=== PATIENT | female | born 1995 | race Caucasian/White ===

== ENCOUNTER 2019-08-08 08:43 | Emergency (ER) | payer MEDICAID ==
[2019-08-08 09:14] LABS: GLUCOSE, URINE (UA) NEGATIVE (NEGATIVE); KETONES,URINE (UA) 15 mg/dL (NEGATIVE); LEUKOCYTE ESTERASE, URINE TRACE (NEGATIVE); NITRITE,URINE NEGATIVE (NEGATIVE); OCCULT BLOOD,URINE NEGATIVE (NEGATIVE); PH,URINE 6.5 PH (5.0-7.5); PROTEIN,URINE NEGATIVE (NEGATIVE); UROBILINOGEN,URINE 2 E.U./dL (NORMAL)
[2019-08-08 09:18] LABS: CLARITY,URINE CLEAR (CLEAR); HCG UR QUAL NEGATIVE
[2019-08-08 09:21] LABS: BILIRUBIN,URINE NEGATIVE (NEGATIVE); ICTOTEST,URINE NEGATIVE
[2019-08-08 09:31] LABS: BACTERIA,URINE Few /HPF (None Seen); RBC,URINE 0-5 /HPF (0-5); SQUAMOUS EPITHELIAL CELL,UR MOD Squamous (<= Few)
[2019-08-08] MEDS ORDERED: LIDOCAINE 1%-EPI 1:100000 20 ML MDV SUBQ STA (11:11)
--- NOTE | 2019-08-08 12:02 | PROCEDURE REPORT ---
Hospitalist Procedure Note - Procedure Note Procedure Note: Nexplanon removal Pt reports placement 4 years ago. Feeling very anxious today, chest tightening, dyspnea. Although relates longstanding anxiety d/o, denies previous panic attacks. Wants the nexplanon out. I counseled her re 3 year duration of action; neg UPT today. Counseled her re multiple misconceptions about LARCs and other contraceptives and her current lack of protection from . She denies intent to harm herself or others. Appears very comfortable, in no distress. Consent obtained. Left arm cleaned with betadine. 2.5cc 1% lido w epi injected. 2mm incision made just at the end of the device and it was easily removed with a mosquito forcep in its entirety. EBL<1cc Bandage placed. Device showed to patient.
--- NOTE | 2019-08-08 13:58 | ED Physician Documentation ---
History of Present Illness - Stated complaint Stated Complaint: L ARM PX - Chief complaint Chief Complaint: MHE - History obtained from History obtained from: Patient - History of Present Illness Timing: How many weeks ago (1) - Additonal information Additional information: 24-year-old female has had an implan in place for the past 4 years has over the past week developed increase in anxiety and depression she is having some suicidal thoughts and she has been become concerned about this and feels that this is related to the implan. She feels it is related to the implan because she is beginning to get some itching to this to the site of the insertion and associated with this itching she is having thoughts of depression anxiety.She has become concerned about these ideas in her head and has come to the emergency department today really wanting to get the implan out now. Review of Systems Constitutional: denies: Fever Eyes: denies: Decreased vision Ears: denies: Ear pain Nose: denies: Rhinorrhea / runny nose, Congestion Throat: denies: Sore throat Cardiac: denies: Chest pain / pressure, Palpitations Respiratory: denies: Dyspnea, Cough GI: reports: Nausea. denies: Abdominal Pain, Vomiting : denies: Dysuria, Frequency Skin: denies: Rash Musculoskeletal: denies: Neck pain, Back pain, Extremity pain Neurologic: denies: Generalized weakness, Focal weakness, Numbness PD PAST MEDICAL HISTORY - Past Medical History Past Medical History: No - Past Surgical History Past Surgical History: No - Present Medications Home Medications: Ambulatory Orders Medication Instructions Recorded Confirmed Etonogestrel [Nexplanon] 68 mg SQ 08/08/19 - Allergies Allergies/Adverse Reactions: Allergies Allergy/AdvReac Type Severity Reaction Status Date / Time No Known Drug Allergies Allergy Verified 08/08/19 08:55 - Social History Does the pt smoke?: No Smoking Status: Never smoker Does the pt drink ETOH?: No Does the pt have substance abuse?: No - Immunizations Immunizations are current?: Yes PD ED PE NORMAL - Vitals Vital signs reviewed: Yes (normal ) - General General: Alert and oriented X 3, No acute distress, Well developed/nourished - HEENT HEENT: Atraumatic, PERRL, EOMI - Neck Neck: Supple, no meningeal sign, No bony TTP - Cardiac Cardiac: RRR, No murmur - Respiratory Respiratory: No respiratory distress, Clear bilaterally - Abdomen Abdomen: Normal bowel sounds, Soft, Non tender, Non distended, No organomegaly - Back Back: No CVA TTP, No spinal TTP - Derm Derm: Normal color, Warm and dry, No rash - Extremities Extremities: No deformity, No edema, No calf tenderness / cord, Other (At the site of the implant and there is no evidence of inflammation or specific swelling the implan is palpable and is not tender) - Neuro Neuro: Alert and oriented X 3, aircraft part assembler 2-12 intact, No motor deficit, No sensory deficit, Normal speech Eye Opening: Spontaneous Motor: Obeys Commands Verbal: Oriented GCS Score: 15 - Psych Psych: Normal mood, Normal affect Results - Vitals Vitals: Vital Signs - 24 hr 08/08/19 08/08/19 08/08/19 08:51 08:55 11:00 Temperature 37 C Heart Rate 96 95 92 Respiratory 18 16 16 Rate Blood Pressure 127/88 H 120/78 118/65 O2 Saturation 100 100 100 08/08/19 13:59 Temperature 36.8 C Heart Rate 80 Respiratory 16 Rate Blood Pressure 122/65 O2 Saturation 100 Oxygen O2 Source Room air - Labs Labs: Laboratory Tests 08/08/19 08/08/19 09:00 09:00 Urine Color DARK YELLOW Urine Clarity CLEAR Urine pH 6.5 Ur Specific [place] 1.025 1.025 Urine Protein NEGATIVE Urine Glucose (UA) NEGATIVE Urine Ketones 15 H Urine Occult Blood NEGATIVE Urine Nitrite NEGATIVE Urine Bilirubin NEGATIVE Urine Urobilinogen 2 H Ur Leukocyte Esterase TRACE H Urine RBC 0-5 Urine WBC 0-3 Ur Squamous Epith Cells MOD Squamous H Urine Bacteria Few Ur Microscopic Review INDICATED Urine Culture Comments NOT INDICATED Urine HCG, Qual NEGATIVE PD MEDICAL DECISION MAKING - ED course Complexity details: reviewed results, re-evaluated patient, considered differential, d/w patient ED course: 24-year-old female with an implant in place who is feeling this needs to be removed immediately has come to the emergency department feeling depressed and anxious. The SALES AND MARKETING ENGINEER doctor is consulted the case comes to the emerge department and remove the implant. The patient feels improved and she is given resources for counseling and follow-up doctors by the social media marketing specialist. I have encouraged the patient to follow-up with [facility] and to follow-up with counseling. She does feel that she is likely stressed from not being able to go back home to [place] during the coronavirus. She has been stuck here in [facility] now for the past 3 months Departure - Departure Disposition: 01 Home, Self Care Clinical Impression: Implanon removal Depression Qualifiers: Depression Type: unspecified Qualified Code(s): F32.9 - Major depressive disorder, single episode, unspecified Condition: Stable Instructions: ED Stress React, ED Depression Follow-Up: [facility] [Provider Group] Discharge Date/Time: 08/08/19 14:00
[2019-08-08 14:00] VITALS: BP 122/65
== END 2019-08-08 14:00 | disposition home or self-care (01) ==
LOC: ED 08:43
DX: Z45.89 Encounter for adjustment and management of other implanted devices (principal); F32.9 Major depressive disorder, single episode, unspecified; F41.9 Anxiety disorder, unspecified
CPT/HCPCS: 11982; 81001; 81003; 81025; 87086; 99283; 99284